=== PATIENT | female | born 1970 | race Caucasian/White ===

== ENCOUNTER 2019-05-03 08:36 | Day surgery (SDC) | payer MEDICARE, MEDICAID ==
[~2019-05-03] VITALS: Ht 157.5 cm; Wt 74.4 kg
[~2019-05-03 08:36] MED LIST: ALLE10TA32 PO; ATOR1TAB19 PO; BENA25TA5 PO; GLIM4TAB5 PO; JANU100T PO; LISI-542 PO; LR 1,000 ML IV ONE; LR 1,000 ML IV SCH; MAGN500C2 PO; MELA3TAB44 PO; METF10004 PO; METO1TAB32 PO; MULTCAP PO; MYRB50TA PO; NATU1TAB5 PO; ceFAZolin SOD 2 GM in IV 1 EA IV ONE
[2019-05-03] MEDS ORDERED: LIDOCAINE 1% SDV INJ 30 ML VIAL As Ordered ONE (09:25)
[2019-05-03] MEDS ORDERED: ceFAZolin 1GM INJ (J0690 PER 500MG) As Ordered ONE (09:25)
[2019-05-03] MEDS ORDERED: propofoL 200 MG/20 ML VIAL As Ordered ONE (10:16)
[2019-05-03] MEDS ORDERED: LIDOCAINE 2% INJ 100 MG/5 ML SDV (FOR ANES.) As Ordered ONE (10:19)
[2019-05-03] MEDS ORDERED: ONDANSETRON 4MG/2ML VIAL (J2405) As Ordered ONE (10:19)
[2019-05-03] MEDS ORDERED: dexameTHASONE 4 MG/ML 1ML VIAL (J1100) As Ordered ONE ×2 (10:19→10:20)
[2019-05-03] MEDS ORDERED: fentaNYL 100 MCG/2 ML INJECTION (J3010) As Ordered ONE (10:21)
[2019-05-03] MEDS ORDERED: MIDAZOLAM INJ 2 MG/2 ML VIAL (J2250) As Ordered ONE (10:22)
[2019-05-03 15:05] VITALS: BP 148/98
--- NOTE | 2019-05-03 19:15 | RO ---
DATE OF PROCEDURE: 05/03/2019 PREOPERATIVE DIAGNOSIS: Incontinence. POSTOPERATIVE DIAGNOSIS: Incontinence. OPERATIVE PROCEDURE: InterStim stage I. SURGEON: Zehra Waterman MD DIABETES SOLUTIONS SPECIALIST: None. ANESTHESIA: Monitored anesthesia care (MAC) with local. BRIEF DESCRIPTION OF PROCEDURE AND FINDINGS: Jessica was brought to the operating room. She was placed prone as usual and positioned, prepped and draped as is typical. She was given some sedation and then local 1% lidocaine as well. First we measured out 11 cm up and a couple centimeters over from the midline and used the needle to carefully locate the third foramen on the left side. In fact, we first even though we had measured 11 cm up, the first placement was actually in foramen four, so we went up a little from that. We were able to get the medial aspect of foramen number three. Tested it. Had very good response and so we went ahead and placed the introducer. We removed the needle, placed the lead and then in testing the lead, notes 2 and 3 had great response, 0 and 2, very little response with multiple repositions so we decided to try for the right side and I was able to place the needle within the foramen at least four times as documented on x-ray, but there was resistance deeper in the foramen as if there is any osteophytes or some other difficulty and by x-ray it appeared we were in the right spot. Some of these leads in order to go through we were really sort of leaning much to angularly, but when we tried a second needle to get a better angle, the more typical angle, we just could not get through without feeling an unusual resistance so we decided to try using active fluoro to try to improve the curve of the lead on the left side and by doing this we were able to get a placement that had three out of the four leads functional and effective, so we went ahead and took that placement and held it in place under fluoro so that we could keep it in that location and then tunneled that lead out to the future pocket site in the left buttock which we of course created used the Bovie to minimize bleeding, irrigated with the antibiotic irrigation and then brought out the lead, connected the store hand, then tunneled this out to the flank on the patient's left. We then irrigated again, closed the deep layer, closing in the pocket site with #2-0 Vicryl, then used #3-0 Vicryl to close the skin of all three wounds, put Steri-Strips over the future pocket site and over the small wound where we had used the tunneler to come away from the first lead placement and then Telfa over the exiting extension wound. Then of course a Tegaderm over that. With the procedure ended, the patient was in good condition and recovering in the recovery room in good condition. There were no complications during the procedure. There were no specimens. Estimated blood loss about 1 mL. Fluid replacement was crystalloid.
--- NOTE | 2019-05-03 19:25 | REP ---
C-ARM VIEWS PELVIS: Two C-Arm views of the pelvis are performed during placement of a radiopaque lead in the pelvis. 1 minute 11 seconds fluoroscopy time utilized. Electronically Signed by Willard Lassiter MD 05/04/2019 06:25 P
== END 2019-05-03 15:30 | disposition home or self-care (01) ==
LOC: M SDC 08:36
PROVIDERS: ATTEND Obstetrics & Gynecology
DX: R32 Unspecified urinary incontinence (principal); E11.9 Type 2 diabetes mellitus without complications; I10 Essential (primary) hypertension; E78.5 Hyperlipidemia, unspecified; K21.9 Gastro-esophageal reflux disease without esophagitis; Z79.899 Other long term (current) drug therapy
CPT/HCPCS: 64581; 76000; C1767; C1894; J0690; J1100; J2250; J2405; J3010

== ENCOUNTER 2019-05-10 08:11 | Day surgery (SDC) | payer MEDICARE, MEDICAID ==
[~2019-05-10] VITALS: Ht 157.5 cm; Wt 73.4 kg
[~2019-05-10 08:11] MED LIST changes: -LR 1,000 ML IV SCH; -ceFAZolin SOD 2 GM in IV 1 EA IV ONE
[2019-05-10] MEDS ORDERED: LIDOCAINE 2% INJ 100 MG/5 ML SDV (FOR ANES.) As Ordered ONE (09:06)
[2019-05-10] MEDS ORDERED: dexameTHASONE 4 MG/ML 1ML VIAL (J1100) As Ordered ONE (09:06)
[2019-05-10] MEDS ORDERED: ONDANSETRON 4MG/2ML VIAL (J2405) As Ordered ONE (09:06)
[2019-05-10] MEDS ORDERED: propofoL 200 MG/20 ML VIAL As Ordered ONE ×2 (09:06→10:21)
[2019-05-10] MEDS ORDERED: MIDAZOLAM INJ 2 MG/2 ML VIAL (J2250) As Ordered ONE (09:07)
[2019-05-10] MEDS ORDERED: fentaNYL 100 MCG/2 ML INJECTION (J3010) As Ordered ONE (09:07)
[2019-05-10] MEDS ORDERED: ceFAZolin 2 GM/D5W 50 ML IV BAG (J0690 PER 500MG) As Ordered ONE (09:34)
[2019-05-10] MEDS ORDERED: ceFAZolin 1GM INJ (J0690 PER 500MG) As Ordered ONE (09:46)
[2019-05-10] MEDS ORDERED: LIDOCAINE 1% SDV INJ 30 ML VIAL As Ordered ONE (09:46)
[2019-05-10] MEDS ORDERED: ceFAZolin SOD 2 GM in IV 1 EA IV ONE (10:00)
[2019-05-10] MEDS ORDERED: HumaLOG INSULIN (NovoLOG) PER UNIT SC ONE ×2 (10:00)
[2019-05-10] MEDS ORDERED: ACETAMINOPHEN 1000MG 100ML IV BTL (OFIRMEV) (J0131 PER 10MG) As Ordered ONE (10:36)
[2019-05-10] MEDS ORDERED: KETOROLAC 60 MG/2 ML VIAL (J1885) As Ordered ONE (10:36)
[2019-05-10 11:30] VITALS: BP 132/78
--- NOTE | 2019-05-10 15:31 | RO ---
DATE OF SURGERY: 05/10/2019 PREOPERATIVE DIAGNOSIS/INDICATION FOR SURGERY: Successful stage I InterStim. POSTOPERATIVE DIAGNOSIS: Successful stage I InterStim. PROCEDURE: Stage II InterStim with permanent generator implant. SURGEON: Zehra Waterman MD REGISTERED MIDWIFE: None. ANESTHESIA: Monitored anesthesia care (MAC) with local. BRIEF DESCRIPTION OF PROCEDURE AND FINDINGS: Jessica was brought to the operating room where sufficient MAC anesthesia was induced. She was prepped, draped, and positioned in the usual supine fashion, and local anesthetic was injected around the site of the connector incision. After waiting for that local to set up, incision was made of the line of the previous incision in that location in the posterior left buttock. We then carefully dissected down to the connection, disconnected the extension lead, connected the new generator, created a pocket, irrigated the pocket copiously with antibiotic irrigant, placed the new generator, secured the deeper stitches, tested the impedance, and confirmed good placement and then closed the skin wound using #3-0 Vicryl in a subcuticular stitch and then dry, sterile dressing with Steri-Strips was placed. Estimated blood loss for procedure: Maybe 2 mL. Fluid replacement: Crystalloid. COMPLICATIONS: None. CONDITION/DISPOSITION: Jessica tolerated procedure well and was recovering in the recovery room in good condition. edited: 05/11/2019 0915 tkf
== END 2019-05-10 11:50 | disposition home or self-care (01) ==
LOC: M SDC 08:11 → EDUNIT# 12:00
PROVIDERS: ATTEND Obstetrics & Gynecology
DX: R32 Unspecified urinary incontinence (principal); I10 Essential (primary) hypertension; E78.49 Other hyperlipidemia; E11.9 Type 2 diabetes mellitus without complications; K21.9 Gastro-esophageal reflux disease without esophagitis; Z79.84 Long term (current) use of oral hypoglycemic drugs; Z79.899 Other long term (current) drug therapy
CPT/HCPCS: 64590; C1767; C1787; J0131; J0690; J1885; J2250; J2405; J3010

== ENCOUNTER → 2021-03-02 | Outpatient (REF) | payer MEDICARE, MEDICAID ==
[~2021-03-02] MED LIST changes: -LISI-542 PO; +LISI-898 PO; -LR 1,000 ML IV ONE
[2021-03-02 12:51] LABS: APPEARANCE, URINE CLEAR (CLEAR); BACTERIA, URINE AUTO NEGATIVE (NEGATIVE); BILIRUBIN, URINE AUTO NEGATIVE (NEGATIVE); BLOOD, URINE BLOOD NEGATIVE (NEGATIVE); COLOR, URINE STRAW (YELLOW); GLUCOSE, URINE (UA) AUTO 3+ mg/dL (NEGATIVE); KETONE, URINE AUTO NEGATIVE (NEGATIVE); LEUKOCYTE ESTERASE, URINE AUTO NEGATIVE (NEGATIVE); NITRITE, URINE AUTO NEGATIVE (NEGATIVE); PROTEIN, URINE AUTO NEGATIVE (NEGATIVE); RBC, URINE AUTO 0 /HPF (0-3); SPECIFIC GRAVITY URINE AUTO 1.011 (1.002-1.035); SQUAMOUS EPITHELIAL CELL UR AU 1 /HPF (0-6); UROBILINOGEN, URINE AUTO 0.2 mg/dL (0.0-2.0); WBC, URINE AUTO 2 /HPF (0-3)
== END ==
LOC: M LAB REF 11:48
PROVIDERS: ATTEND Obstetrics & Gynecology
DX: N32.81 Overactive bladder (principal); N39.41 Urge incontinence

== ENCOUNTER → 2021-05-02 | Outpatient (CLI) | payer MEDICARE, MEDICAID ==
[~2021-05-02] MED LIST changes: +LANTINJ4 SC
== END ==
LOC: M LABSMTC 09:33
PROVIDERS: ATTEND Anesthesiology
DX: Z11.52 Encounter for screening for COVID-19 (principal); Z20.822 Contact with and (suspected) exposure to COVID-19

== ENCOUNTER 2021-05-07 08:36 | Day surgery (SDC) | payer MEDICARE, MEDICAID ==
[~2021-05-07] VITALS: Ht 157.5 cm; Wt 73.8 kg
[~2021-05-07 08:36] MED LIST changes: +LIDOCAINE 1% MDV 20ML VIAL SQ PRN; +LR 1,000 ML IV SCH
[2021-05-07] MEDS ORDERED: MULT-90 PO (09:27)
[2021-05-07] MEDS ORDERED: HumaLOG INSULIN (NovoLOG) PER UNIT SC ONE (10:05)
[2021-05-07] MEDS ORDERED: LR 1,000 ML IV ONE (10:10)
[2021-05-07] MEDS ORDERED: propofoL 200 MG/20 ML VIAL As Ordered ONE ×2 (13:35→15:22)
[2021-05-07] MEDS ORDERED: LIDOCAINE 2% 100MG/5ML SDV (FOR ANES.) As Ordered ONE ×2 (13:35→14:05)
[2021-05-07] MEDS ORDERED: MIDAZOLAM INJ 2MG/2ML VIAL (J2250 PER 1MG) As Ordered ONE (13:35)
[2021-05-07] MEDS ORDERED: fentaNYL 100 MCG/2 ML INJECTION (J3010) As Ordered ONE (13:36)
[2021-05-07] MEDS ORDERED: BUPIVACAINE HCL 0.25% 30ML VIAL As Ordered ONE (13:59)
[2021-05-07] MEDS: BOTOX THERAPEUTIC 100 UNIT VIAL (J0585 PER 1 UNIT) As Ordered ONE ×2 (14:00→15:00)
[2021-05-07 16:07] VITALS: BP 166/93
--- NOTE | 2021-05-08 07:57 | RO ---
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 POSTOPERATIVE DIAGNOSIS: Incontinence with a small bladder confirmed by preoperative urodynamics. FINDINGS EXPECTED: She has evidence of a sort of strictures in the bladder wall consistent with small bladder. PROCEDURE: Cystourethroscopy with Botox injection. We used 100 units of Botox A and hydrodistention with just saline. SURGEON: Zehra Waterman MD MANGANESE HEATER: None. ANESTHESIA: MAC. SPECIMENS: None. BRIEF DESCRIPTION OF PROCEDURE AND FINDINGS: Jessica was brought to the operating room where sufficient sedation was given and she was prepped, draped and positioned in the usual sterile fashion. Then, cystoscopy was used to visualize the bladder. There were no bladder lesions per se. No polyps. No stones. Normal ureteral jets. She did have a sort of hypervascularity and sort of mariam-crossing strictures of the bladder wall that you often see in people with an overactive bladder that sort of cross over with interstitial cystitis and a little bit of stricture of the wall even without us filling her. We then mixed up the Botox A, 100 units, and put it in 0.5 mL aliquots along the bladder wall, of course avoiding the trigone but over the posterior dome of the bladder went ahead injected in a progressive, separate spot fashion spreading it out. Took some pictures to document that progress. We then, after completing that, did use some saline to clear the needle so we made sure we used saline as a chaser to make sure we got all of the Botox injected. We then went ahead and did hydrodistention but only using, of course, a 1000 mL bag and only about a meter over the patient and we distended the bladder and then held it under distention for two minutes and then emptied the bladder and ended the procedure. ESTIMATED BLOOD LOSS: Maybe 0.5 mL. FLUID REPLACEMENT: Crystalloid. COMPLICATIONS: None. CONDITION AND DISPOSITION: Jessica tolerated the procedure well and was recovering in the recovery room in good condition.
== END 2021-05-07 16:10 | disposition home or self-care (01) ==
LOC: M SDC 08:36
PROVIDERS: ATTEND Obstetrics & Gynecology
DX: N32.89 Other specified disorders of bladder (principal); R32 Unspecified urinary incontinence; I10 Essential (primary) hypertension; E11.9 Type 2 diabetes mellitus without complications; N32.81 Overactive bladder; M19.90 Unspecified osteoarthritis, unspecified site; E78.00 Pure hypercholesterolemia, unspecified; K21.9 Gastro-esophageal reflux disease without esophagitis; Z79.899 Other long term (current) drug therapy; Z79.4 Long term (current) use of insulin; Z96.0 Presence of urogenital implants
CPT/HCPCS: 52265; 52287; J0585; J2250; J3010

== ENCOUNTER → 2023-02-09 | Outpatient (REF) | payer MEDICARE, MEDICAID, OTHER ==
[~2023-02-09] MED LIST changes: -LIDOCAINE 1% MDV 20ML VIAL SQ PRN; -LISI-898 PO; +LISI5TAB11 PO; -LR 1,000 ML IV SCH; +MULT-90 PO
[2023-02-09 14:36] LABS: BACTERIA, URINE AUTO NEGATIVE (NEGATIVE); MUCUS, URINE SMALL (NEGATIVE); RBC, URINE AUTO 0 /HPF (0-3); SQUAMOUS EPITHELIAL CELL UR AU 0 /HPF (0-6); WBC, URINE AUTO 0 /HPF (0-3)
== END ==
LOC: M SMT 13:11
PROVIDERS: ATTEND Specialist
DX: N30.20 Other chronic cystitis without hematuria (principal)

== ENCOUNTER 2023-03-14 07:15 | Day surgery (SDC) | payer OTHER, MEDICAID ==
[~2023-03-14] VITALS: Ht 157.5 cm; Wt 74.7 kg
[2023-03-14] MEDS ORDERED: LR 1,000 ML IV SCH (08:25)
[2023-03-14] MEDS: ceFAZolin SOD 2 GM in IV 1 EA IV ONE (08:40)
[2023-03-14] MEDS: LIDOCAINE 2% 5ML JELLY UROJET As Ordered ONE (09:15)
[2023-03-14] MEDS: LIDOCAINE 1% MDV 50ML VIAL As Ordered ONE (09:15)
[2023-03-14] MEDS: NITROFURANTOIN (MACROBID) 100 MG CAP PO ONE (09:58)
[2023-03-14] MEDS: BOTOX THERAPEUTIC 100 UNIT VIAL As Ordered ONE (10:35)
[2023-03-14 11:00] VITALS: BP 164/94; TEMP 96.7; O2SAT 95
== END 2023-03-14 11:18 | disposition home or self-care (01) ==
LOC: M SDC 07:15
PROVIDERS: ATTEND Specialist
DX: R35.0 Frequency of micturition (principal); N39.41 Urge incontinence; E11.9 Type 2 diabetes mellitus without complications; Z79.4 Long term (current) use of insulin; Z79.84 Long term (current) use of oral hypoglycemic drugs; Z79.899 Other long term (current) drug therapy; Z96.82 Presence of neurostimulator
CPT/HCPCS: 52287; A4215; J0585

== ENCOUNTER → 2023-04-08 | Outpatient (REF) | payer OTHER, MEDICAID ==
[2023-04-08 14:09] LABS: APPEARANCE, URINE HAZY (CLEAR); BACTERIA, URINE AUTO 1+ (NEGATIVE); BILIRUBIN, URINE AUTO NEGATIVE (NEGATIVE); BLOOD, URINE BLOOD NEGATIVE (NEGATIVE); COLOR, URINE YELLOW (YELLOW); GLUCOSE, URINE (UA) AUTO 3+ mg/dL (NEGATIVE); KETONE, URINE AUTO NEGATIVE (NEGATIVE); LEUKOCYTE ESTERASE, URINE AUTO 3+ (NEGATIVE); NITRITE, URINE AUTO NEGATIVE (NEGATIVE); PROTEIN, URINE AUTO NEGATIVE (NEGATIVE); RBC, URINE AUTO 1 /HPF (0-3); SPECIFIC GRAVITY URINE AUTO 1.003 (1.002-1.035); SQUAMOUS EPITHELIAL CELL UR AU 0 /HPF (0-6); UROBILINOGEN, URINE AUTO 0.2 mg/dL (0.0-2.0); WBC, URINE AUTO 67 /HPF (0-3)
== END ==
LOC: M SMT 13:26
PROVIDERS: ATTEND Specialist
DX: N39.41 Urge incontinence (principal)

== ENCOUNTER → 2023-09-08 | Outpatient (REF) | payer OTHER, MEDICAID ==
[2023-09-08 13:48] LABS: APPEARANCE, URINE HAZY (CLEAR); BACTERIA, URINE AUTO 2+ (NEGATIVE); BILIRUBIN, URINE AUTO NEGATIVE (NEGATIVE); BLOOD, URINE BLOOD NEGATIVE (NEGATIVE); COLOR, URINE YELLOW (YELLOW); GLUCOSE, URINE (UA) AUTO 2+ mg/dL (NEGATIVE); KETONE, URINE AUTO NEGATIVE (NEGATIVE); LEUKOCYTE ESTERASE, URINE AUTO 2+ (NEGATIVE); MUCUS, URINE SMALL (NEGATIVE); NITRITE, URINE AUTO NEGATIVE (NEGATIVE); PROTEIN, URINE AUTO NEGATIVE (NEGATIVE); RBC, URINE AUTO 0 /HPF (0-3); SPECIFIC GRAVITY URINE AUTO 1.017 (1.002-1.035); SQUAMOUS EPITHELIAL CELL UR AU 1 /HPF (0-6); UROBILINOGEN, URINE AUTO 0.2 mg/dL (0.0-2.0); WBC, URINE AUTO 32 /HPF (0-3)
== END ==
LOC: M SMT 13:22
PROVIDERS: ATTEND Specialist
DX: N39.41 Urge incontinence (principal)

== ENCOUNTER → 2024-02-23 | Outpatient (REF) | payer OTHER, MEDICAID ==
[2024-02-23 13:13] LABS: APPEARANCE, URINE CLEAR (CLEAR); BACTERIA, URINE AUTO NEGATIVE (NEGATIVE); BILIRUBIN, URINE AUTO NEGATIVE (NEGATIVE); BLOOD, URINE BLOOD NEGATIVE (NEGATIVE); COLOR, URINE STRAW (YELLOW); GLUCOSE, URINE (UA) AUTO NEGATIVE (NEGATIVE); KETONE, URINE AUTO NEGATIVE (NEGATIVE); LEUKOCYTE ESTERASE, URINE AUTO NEGATIVE (NEGATIVE); NITRITE, URINE AUTO NEGATIVE (NEGATIVE); PROTEIN, URINE AUTO NEGATIVE (NEGATIVE); RBC, URINE AUTO 0 /HPF (0-3); SPECIFIC GRAVITY URINE AUTO 1.004 (1.002-1.035); SQUAMOUS EPITHELIAL CELL UR AU 0 /HPF (0-6); UROBILINOGEN, URINE AUTO 0.2 mg/dL (0.0-2.0); WBC, URINE AUTO 0 /HPF (0-3)
== END ==
LOC: M SMT 12:16
PROVIDERS: ATTEND Nurse Practitioner Family
DX: R30.0 Dysuria (principal)